=== PATIENT | female | born 1990 | race Asian ===

== ENCOUNTER 2017-09-07 18:53 | Emergency (ER) | payer BC ==
[~2017-09-07] VITALS: Ht 157.5 cm; Wt 80.3 kg
[2017-09-07 19:12] VITALS: BP_SYST 123
[2017-09-07 21:15] VITALS: BP_SYST 120
[2017-09-07] MEDS ORDERED: LACTULOSE 20 GM/30 ML UDC PO ONE (21:15)
== END 2017-09-07 21:15 | disposition home or self-care (01) ==
LOC: SED 18:53
DX: K59.00 Constipation, unspecified (principal); J45.909 Unspecified asthma, uncomplicated; R03.0 Elevated blood-pressure reading, without diagnosis of hypertension; Z88.6 Allergy status to analgesic agent; Z88.0 Allergy status to penicillin
CPT/HCPCS: 74018; 81025; 99283

== ENCOUNTER 2019-04-21 12:37 | Emergency (ER) | payer BC ==
[~2019-04-21] VITALS: Ht 157.5 cm; Wt 89.8 kg
[2019-04-21 12:44] VITALS: BP_SYST 156
--- NOTE | 2019-04-21 12:44 | NUR ---
Patient to ER bed 7 to gown for evaluation. Side rails up.
--- NOTE | 2019-04-21 12:45 | NUR ---
Patient is awake, alert, and oriented x4. Patient came from home complaining of bilateral rib pain since . No other complaints.
--- NOTE | 2019-04-21 12:50 | NUR ---
ER Dr. Rocha at bedside examining patient.
[2019-04-21 13:00] VITALS: BP_SYST 154
--- NOTE | 2019-04-21 13:00 | NUR ---
Patient given written and verbal discharge instructions and verbalizes understanding. ER MD discussed with patient the results and treatment provided. Patient in stable condition. ID arm band removed. Rx of tod palma given. Patient educated on pain management and to follow up with PMD. Pain Scale 10/10, Dr. Rocha is aware. Opportunity for questions provided and answered. Medication side effect fact sheet provided.
== END 2019-04-21 13:00 | disposition home or self-care (01) ==
LOC: SED 12:37
DX: J40 Bronchitis, not specified as acute or chronic (principal); Z88.5 Allergy status to narcotic agent; Z88.0 Allergy status to penicillin
CPT/HCPCS: 99283